=== PATIENT | male | born 1955 | race Hispanic/Latino ===

== ENCOUNTER → 2016-09-11 | Outpatient (CLI) | payer OTHER ==
[~2016-09-11] VITALS: Ht 188 cm; Wt 111.0 kg
[~2016-09-11] MED LIST: ATOR1TAB21 PO; HYZA100T2 PO; KRIL1000 PO; LIDOCAINE 1% MDV 20ML VIAL As Ordered ONE; METF750T PO; OMEP40CA2 PO; PROPOFOL 200 MG/20 ML VIAL As Ordered ONE
[2016-09-11] MEDS: NS 1,000 ML IV SCH ×2 (09:36→09:37)
--- NOTE | 2016-09-11 10:06 | ROOR ---
Patient Name: Doe Granados Procedure Date: 09/11/2016 9:44 AM Date of : 1955 Age: 61 Room: M OPP Gender: Male Note Status: Finalized Procedure: Upper GI endoscopy + Biopsies Indications: Heartburn, Failure to respond to medical treatment Providers: Albert Leal MD Referring MD: ABRAN OSULLIVAN MD Requesting Provider: Medicines: Monitored Anesthesia Care Complications: No immediate complications. Procedure: Pre-Anesthesia Assessment: - The heart rate, respiratory rate, oxygen saturations, blood pressure, adequacy of pulmonary ventilation, and response to care were monitored throughout the procedure. The Endoscope was introduced through the mouth, and advanced to the second part of duodenum. The upper GI endoscopy was accomplished without difficulty. The patient tolerated the procedure well. Findings: The Z-line was regular and was found 40 cm from the incisors. A small hiatus hernia was present. Diffuse mild inflammation characterized by congestion (edema) and erythema was found in the gastric antrum. Biopsies were taken with a cold forceps for Helicobacter pylori testing. The exam of the duodenum was otherwise normal. Impression: - Z-line regular, 40 cm from the incisors. - Small hiatus hernia. - Chronic gastritis. Biopsied. - The examination was otherwise normal. Recommendation: - Patient has a contact number available for emergencies. The signs and symptoms of potential delayed complications were discussed with the patient. Return to normal activities tomorrow. Written discharge instructions were provided to the patient. - Resume previous diet. - Discharge patient to home. - Continue present medications. - Await pathology results. - Telephone GI clinic for pathology results in 1 week. - Return to referring physician. - The findings and recommendations were discussed with the patient's family. Albert Leal MD Albert Leal MD 09/11/2016 10:05:55 AM This report has been signed electronically. Number of Addenda: 0 Note Initiated On: 09/11/2016 9:44 AM Estimated Blood Loss: Estimated blood loss: none.
[2016-09-11 10:25] VITALS: BP 142/84
== END ==
LOC: M OPP 09:11
PROVIDERS: ATTEND Internal Medicine Gastroenterology
DX: R12 Heartburn (principal); K44.9 Diaphragmatic hernia without obstruction or gangrene; K29.50 Unspecified chronic gastritis without bleeding

== ENCOUNTER → 2017-05-14 | Outpatient (CLI) | payer OTHER ==
[~2017-05-14] MED LIST changes: +CONRAY-43 43% 50ML VIAL (Q9960) As Ordered ONE; -PROPOFOL 200 MG/20 ML VIAL As Ordered ONE; +TRIAMCINOLONE ACETONIDE SUSP 40 MG/ML VIAL (J3301) As Ordered ONE
--- NOTE | 2017-05-14 18:39 | REP ---
Bilateral hip injection The procedure was performed under the direct supervision of Dr. Hagan. The benefits and risks including but not limited to pain infection and bleeding and anaphylaxis were explained to the patient and informed consent was obtained. The right hip was addressed first. The right femoral neck was localized using fluoroscopic guidance. The skin was prepped and draped in a sterile fashion. 1% lidocaine was used as a local anesthetic. Using fluoroscopic guidance a 22-gauge spinal needle was inserted and advanced to the femoral neck. 0.5 ml of Conray 43 was injected to verify placement. 10 ml of a solution containing 9 ml of 1% Xylocaine and 1 ml of Kenalog 40 mg was injected. The needle was then removed. The left hip was then addressed. This portion of the procedure was performed by the resident, Dr. Mata, under my direction. The left femoral neck was localized using fluoroscopic guidance. The skin was prepped and draped in a sterile fashion. 1% lidocaine was used as a local anesthetic. Using fluoroscopic guidance a 22-gauge spinal needle was inserted and advanced to the femoral neck. 1 ml of Conray 43 was injected to verify placement. 10 ml of a solution containing 9 ml of 1% Xylocaine and 1 ml of Kenalog 40 mg was injected. The needle was then removed. The patient tolerated the procedure well and there were no immediate complications. 6 seconds of fluoro time was utilized for this procedure. Reviewed by STAR Angulo 05/14/2017 04:23 PSigned by Morro Hagan MD 05/14/2017 06:30 P
== END ==
LOC: M RADPRO 10:43
PROVIDERS: ATTEND Orthopaedic Surgery
DX: M25.551 Pain in right hip (principal); M25.552 Pain in left hip
CPT/HCPCS: 20610; 77002; J3301; Q9960